=== PATIENT | female | born 1995 | race Caucasian/White ===

== ENCOUNTER 2019-03-10 07:26 | Inpatient (IN) | payer OTHER ==
[~2019-03-10] VITALS: Ht 165.1 cm; Wt 70.3 kg
[2019-03-10] MEDS ORDERED: OBSTETRIX ONE1 EACH PO (11:22)
[2019-03-10] MEDS ORDERED: PRENATAL PLUS1 EAC1 (12:24)
[2019-03-10] MEDS ORDERED: VITAMIN C100 MG (12:25)
== END 2019-03-11 15:10 | disposition home or self-care (01) | DRG 770 ==
LOC: LDR 07:26
PROVIDERS: ADMIT Specialist
PROC: 10D17ZZ Extraction of Products of Conception, Retained, Via Natural or Artificial Opening (ICD-10-PCS; principal; 2019-03-10)
PROC: 3E0P7VZ Introduction of Hormone into Female Reproductive, Via Natural or Artificial Opening (ICD-10-PCS; 2019-03-10)
DX: O02.1 Missed abortion (principal)